=== PATIENT | male | born 1960 | race Caucasian/White ===

== ENCOUNTER 2018-10-12 13:18 | Observation (INO) | payer OTHER ==
[2018-10-12] MEDS ORDERED: Ketorolac Tromethamine 30 MG/ML VIAL ONE ×2 (15:08→16:05)
[2018-10-12] MEDS ORDERED: Morphine 4 MG/ML VIAL ONE (15:08)
[2018-10-12] MEDS ORDERED: PROPOFOL 200 MG/20 ML VIAL ONE (16:05)
[2018-10-12] MEDS ORDERED: Ondansetron PF 4 MG/2 ML Vial ONE (16:05)
[2018-10-12] MEDS ORDERED: Lidocaine 1% PF 5 ML VIAL ONE (16:05)
[2018-10-12] MEDS ORDERED: PHENYLEPHRINE-NS 100 MCG/ML 10 ML SYRINGE ONE (16:05)
[2018-10-12 18:33] VITALS: BMI 24.0
[2018-10-12] MEDS ORDERED: Vancomycin HCl 1 GM in Premix Bag 1 BAG IVPB SCH (18:45)
[2018-10-12] MEDS ORDERED: HYDROmorphone 2 MG/ML VIAL ONE (19:43)
[2018-10-12] MEDS ORDERED: Bupivacaine PF 0.5% 30 ML VIAL ONE (19:48)
[2018-10-12] MEDS ORDERED: Bacitracin Zinc Ointment 30 gm TUBE ONE (19:48)
[2018-10-12] MEDS ORDERED: Sodium Chloride 0.9% 30 ML ONE (19:48)
[2018-10-12] MEDS ORDERED: Fentanyl 100 MCG/2 ML VIAL ONE (21:21)
[2018-10-12] MEDS ORDERED: Promethazine HCl 25 MG/ML VIAL IM PRN (23:25)
[2018-10-12] MEDS ORDERED: Ondansetron HCl/PF 4 MG/2 ML Vial IVP PRN (23:25)
[2018-10-12] MEDS ORDERED: Promethazine HCl 25 MG/ML VIAL SLOW IVP PRN (23:25)
[2018-10-12] MEDS ORDERED: Milk Of Magnesia 30 ML UDCUP PO PRN (23:36)
[2018-10-12] MEDS ORDERED: Bisacodyl 10 MG SUPP PR PRN (23:36)
[2018-10-12] MEDS ORDERED: traMADol HCl 50 MG TAB PO PRN (23:36)
[2018-10-12] MEDS ORDERED: Ondansetron PF 4 MG/2 ML Vial IVP PRN (23:36)
[2018-10-12] MEDS ORDERED: HYDROcodone/Acetaminophen 5/325 mg Tablet PO PRN (23:36)
[2018-10-12] MEDS ORDERED: Acetaminophen 325 MG TAB PO PRN (23:36)
[2018-10-12] MEDS ORDERED: Meperidine HCl/PF 25 MG/ML VIAL IM PRN (23:43)
[2018-10-12] MEDS ORDERED: Communication Order-Pharmacy FS SCH (23:45)
[2018-10-13] MEDS: Ketorolac Tromethamine 30 MG/ML VIAL IVP SCH ×3 (00:57→12:29)
[2018-10-13 01:19] LABS: #Basophils 0.1 thou/uL (0.0-0.2); #Eosinphils 0.7 thou/uL (0.0-0.7); #Lymphocytes 2.3 thou/uL (1.20-3.40); #Monocytes 0.5 thou/uL (0.11-0.59); #Neutrophils 3.4 thou/uL (1.40-6.50); %Basophils 1.1 % (0.0-1.0); %Eosinophils 10.3 % (0.0-10.0); %Lymphocytes 32.5 % (21.0-51.0); %Monocytes 7.2 % (0.0-10.0); %Neutrophils 48.9 % (42.0-75.0); Hemoglobin 14.5 g/dL (14.0-18.0); Mean Corpuscular HGB CONC 33.5 g/dL (32.0-36.0); Mean Corpuscular Hemoglobin 32.1 pg (27.0-31.0); Mean Corpuscular Volume 95.9 fL (78.0-98.0); Mean Platelet Volume 6.4 fL (7.4-10.4); Platelet Count 232 thou/uL (130-400); Red Blood Cell (RBC) Count 4.52 mill/uL (4.70-6.10)
[2018-10-13] MEDS ORDERED: Lactated Ringer's 1,000 ML IV SCH (02:45)
[2018-10-13] MEDS: Vancomycin HCl 1 GM in Premix Bag 1 BAG IVPB SCH ×2 (03:18→15:48)
[2018-10-13 05:19] LABS: Anion Gap 9 mmol/L (10-20); BUN (Urea Nitrogen) 19 mg/dL (8.4-25.7); Calc. Creatinine Clearance 76 mL/min (70-130); Calcium 8.7 mg/dL (7.8-10.44); Carbon Dioxide 27 mmol/L (22-29); Chloride 107 mmol/L (98-107); Estimated GFR-MDRD 69; Glucose 124 mg/dL (70-105); Potassium 3.5 mmol/L (3.5-5.1); Sodium 139 mmol/L (136-145)
[2018-10-13] MEDS ORDERED: TETANUS AND DIPHTHERIA TOX/PF 0.5 ML DISP.SYRIN IM SCH (09:00)
[2018-10-13] MEDS ORDERED: Aspirin 81 mg Enteric Coated Tablet PO SCH ×2 (09:00)
[2018-10-13 11:13] VITALS: BP 101/63
[2018-10-13 15:36] VITALS: TEMP 98
[2018-10-14] MEDS ORDERED: Ketorolac Tromethamine 30 MG/ML VIAL IVP PRN (06:00)
--- NOTE | 2018-10-14 09:46 | OP ---
DATE OF PROCEDURE: 10/12/2018 PREOPERATIVE DIAGNOSES: 1. Right index finger open fracture with wound and nail bed involvement. 2. Right middle finger 1.0 cm wound. PROCEDURES PERFORMED: At the right middle finger: 1. Wound debridement. 2. Closure of wound 1.0 cm wound debridement with final techniques: A. Excisional. B. Used instruments: curette, tenotomy scissors and pickup with irrigation. C. Depth was down to and including the dermis and there was no evidence of infection. At the right index finger: 1. Debridement of material associated with open fracture. 2. Open treatment of index finger distal phalanx fracture. 3. Full thickness skin graft 3.5 x 1.5 cm for final wound closure. 4. C-arm supervision. open distal phalanx fracture with the debridement with final technique s: A. Excisional. B. Used instruments: curette, tenotomy scissors and pickup with irrigation. C. Depth was down to and including the dermis and there was no evidence of infection. TOURNIQUET TIME: Total of 45 minutes. BLOOD LOSS: 15 mL. FINDINGS: No fracture middle finger and comminuted fracture of index finger right distal phalanx. DESCRIPTION OF PROCEDURE: After successful general LMA technique, the limb was prepped and draped. The patient had timeout done appropriately and anesthesia was given. We then gave him a digital bloc k involving both the digits , which were at the right middle and index finger. We first approac hed the middle finger where performing wound debridement without tourniquet inflation and limb exsang uination. We then were able to irrigate this with 250 mL normal saline and the 1 cm wound was closed with an interrupted simple chromic 6-0 suture. We then performed the debridement using the same techniques and listed above of the fracture and the wound where we thought we could not bring the skin out beyond the 4 mm area so this bone underwent op en treatment of fracture with jagged edge removed with a combination of a rongeur and then we complet ed irrigation to 2 liters of normal saline pulse pressure during treatment and pretreatment. Once debridement was done, open treatment was completed with the help of instrumentation and then we brought C-arm to the field to see we had no bone exposed and that the nailbed was at least flushed wi th the bone edges. It was beveled slightly palmarly or volarly. We then completed irrigation after debridement as listed above to the soft tissue, fat, and skin with 3 liters normal saline and Pulsava c pressure with antibiotics inside. The fat was then brought up to the level of the base of the nailbed and supported, we then liberated a piece of tissue that was 3.5 x 1.5 cm from the antecubital fossa, removed all fat and underlying so ft tissue expect dermis, bolstered into the fat and the nail in a horseshoe shaped pattern and then p repared the attachment with a running 5-0 chromic suture. We gave excellent apposition. The patient had stable graft, we then finished the injection of the metacarpal head and trans-metacar pophalangeal joint level, took 5 C-arm pictures and then the patient reports no specimen to be remove d. Both digit not covered with a sterile dressing. The patient left the operating room without evid ence of anesthetic or operative complications.
== END 2018-10-13 18:40 | disposition home or self-care (01) ==
LOC: SDC 13:18 → SURG A 15:27
PROVIDERS: ADMIT Orthopaedic Surgery Hand Surgery; ATTEND Orthopaedic Surgery Hand Surgery
PROC: 0HQFXZZ Repair Right Hand Skin, External Approach (ICD-10-PCS; principal; 2018-10-13)
PROC: 0PBT0ZZ Excision of Right Finger Phalanx, Open Approach (ICD-10-PCS; 2018-10-13)
PROC: 0HRFX73 Replacement of Right Hand Skin with Autologous Tissue Substitute, Full Thickness, External Approach (ICD-10-PCS; 2018-10-13)
DX: S62.630B Displaced fracture of distal phalanx of right index finger, initial encounter for open fracture (principal); S61.212A Laceration without foreign body of right middle finger without damage to nail, initial encounter; Z88.8 Allergy status to other drugs, medicaments and biological substances; W31.9XXA Contact with unspecified machinery, initial encounter; Y99.0 Civilian activity done for income or pay
CPT/HCPCS: 36415; 80048; 85025; 96361; 96365; 96366; 96375; 96376; G0378; J1170; J1885; J2001; J2270; J2405; J2704; J3010; J3370; J3490; S0020